=== PATIENT | female | born 2000 | race Caucasian/White ===

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

== ENCOUNTER 2025-03-30 05:48 | Emergency (ER) | payer BC ==
[2025-03-30 06:12] VITALS: TEMP 97.5; O2SAT 100
[2025-03-30] MEDS ORDERED: XYLOCAINE 1% HCL 20 ML MDV ONE (06:15)
[2025-03-30] MEDS: XYLOCAINE 1% HCL 20 ML MDV IJ ONE (06:17)
--- NOTE | 2025-03-30 07:00 | ERPHSYRPT ---
- History of Present Illness Time Seen by Provider: 03/30/25 06:00 Source: patient Exam Limitations: no limitations Patient Subjective Stated Complaint: pt reports approx 0535 she was bitten by her dog. states she was scratching the dog's stomach when it suddenly turned and bit her face causing lacerations to her lip. Triage Nursing Assessment: pt is aox3, pt tearful upon exam, afebrile, resps easy and non labored, cap refill < 3 seconds, radial pulses strong and equal, pt skin pink warm dry. pt with two lacerations to her bottom lip. minimal bleeding that is controlled at this time. Physician History: 24-year-old female presents to emergency department for evaluation of a dog bite. Patient states she was bitten by her [place] dog. The dog is 2 years old and has had behavioral issues. Patient was bitten on her lower lip right side. No other injuries reported. Tetanus is up-to-date. Patient voices no other complaints or concerns at this time. Incident occurred just prior to arrival Patient is dog up-to-date with vaccinations Portions of this note were created with voice recognition technology. There may be grammatical, spelling, punctuation or sound alike errors Timing/Duration: today Severity: moderate Modifying Factors: Improves With: nothing Associated Symptoms: denies symptoms Allergies/Adverse Reactions: hydrocodone Allergy (Verified 03/30/25 06:12) tramadol Adverse Reaction (Verified 03/30/25 06:12) Home Medications: Norgestimate-Ethinyl Estradiol [Sprintec 28 Day Tablet] 1 ea DAILY 08/05/20 [History] Hx Tetanus, Diphtheria Vaccination/Date Given: Yes Hx Influenza Vaccination/Date Given: No Hx Pneumococcal Vaccination/Date Given: No Immunizations Up to Date: Yes Travel Risk - International Travel Have you traveled outside of the country in past 3 weeks: No - Emerging Infectious Disease Are you exhibiting symptoms associated with any current EIDs: No - Review of Systems Constitutional: No Symptoms, No Fever, No Chills Eyes: No Symptoms Ears, Nose, & Throat: No Symptoms Respiratory: No Symptoms, No Cough, No Dyspnea Cardiac: No Symptoms, No Chest Pain, No Edema, No Syncope Abdominal/Gastrointestinal: No Symptoms, No Abdominal Pain, No Nausea, No Vomiting, No Diarrhea Genitourinary Symptoms: No Symptoms, No Dysuria Musculoskeletal: No Symptoms, No Back Pain, No Neck Pain Skin: No Symptoms, No Rash Neurological: No Symptoms, No Dizziness, No Focal Weakness, No Sensory Changes Psychological: No Symptoms Endocrine: No Symptoms Hematologic/Lymphatic: No Symptoms Immunological/Allergic: No Symptoms All Other Systems: Reviewed and Negative - Past Medical History Pertinent Past Medical History: No - Past Surgical History Past Surgical History: Yes Musculoskeletal: Orthopedic Surgery Other Surgical History: right shoulder surgery - Female History Hx Last Menstrual Period: 03/24/25 Hx Now: No - Social History Smoking Status: Never smoker Exposure to second hand smoke: No Drug Use: none - Social Determinants of Health Will the patient participate in the screening: Yes Do you worry about a steady place to live?: No Do you have any problems with any of the following?: No known problems In the past 12 months,have you had to go without utilities?: No Transportation Issues: No Has anyone in your support network made you feel unsafe?: No Have you or anyone in your house had to go w/o enough food: No - Nursing Vital Signs Nursing Vital Signs: Initial Vital Signs Temperature 97.5 F 03/30/25 05:54 Pulse Rate 84 03/30/25 05:54 Respiratory Rate 18 03/30/25 05:54 Blood Pressure 138/93 03/30/25 05:54 O2 Sat by Pulse Oximetry 100 03/30/25 05:54 Pain Scale Pain Intensity 7 - Physical Exam General Appearance: no apparent distress, alert Eye Exam: PERRL/EOMI, eyes nml inspection Ears, Nose, Throat Exam: normal ENT inspection, moist mucous membranes Neck Exam: normal inspection, full range of motion Respiratory Exam: normal breath sounds, lungs clear, airway intact, No respiratory distress Gastrointestinal/Abdomen Exam: soft, normal bowel sounds, No tenderness, No mass Back Exam: normal inspection, normal range of motion, No CVA tenderness, No vertebral tenderness Extremity Exam: normal inspection, normal range of motion, pelvis stable Neurologic Exam: alert, oriented x 3, cooperative, normal mood/affect, sensation nml, No motor deficits Skin Exam: normal color, warm, dry, other (There is a 2 cm laceration on the mucosal aspect of patient's lower lip right side. There is a 1 cm laceration on the skin surface of her lower lip right side.), No rash Lymphatic Exam: No adenopathy SpO2 Interpretation: normal SpO2: 100 O2 Delivery: Room Air Procedures - Laceration/Wound Repair Lip Time of Procedure: 06:00 (Lower lip right side) Wound Length (cm): 3 Wound's Depth, Shape: superficial Wound Explored: clean Irrigated: Yes Hibiclens Prep: Yes Anesthesia: 1% Lidocaine Volume Anesthetic (ccs): 3 Wound Debrided: No debridement indicated Wound Repaired With: sutures Suture Size/Type: 6-0 (6-0 Vicryl on the mucosal side of the lip. 6-0 Ethilon on the skin surface of the lip) Number of Sutures: 9 Layer Closure?: No Sterile Dressing Applied?: No Splint Applied?: No Sling Applied?: No Progress: Patient tolerated procedure well. No intra or postprocedural complications. Patient neurovascular intact post procedure. 5 simple interrupted sutures placed on the mucosal surface using 6-0 Vicryl. 4 simple interrupted sutures on the skin surface using 6-0 Ethilon 03/30/25 07:18 - Course Nursing assessment & vital signs reviewed: Yes Ordered Tests: Medication Summary Discontinued Medications Generic Name Dose Route Start Last Admin Trade Name Julianq PRN Reason Stop Dose Admin Amoxicillin/Clavulanate Potassium 875 mg 03/30/25 06:58 03/30/25 07:04 Amox Tr/Potassium Clavulanate 875 Mg Tablet PO 03/30/25 06:59 875 mg STAT ONE Administration Amoxicillin/Clavulanate Potassium Confirm 03/30/25 07:03 Amox Tr/Potassium Clavulanate 875 Mg Tablet Administered 03/30/25 07:04 Dose 875 mg .ROUTE .STK-MED ONE Lidocaine HCl 5 ml 03/30/25 06:14 03/30/25 06:17 Lidocaine Hcl 1% 20 Ml Mdv 20 Ml Ml IJ 03/30/25 06:15 5 ml STAT ONE Administration Lidocaine HCl Confirm 03/30/25 06:15 Lidocaine Hcl 1% 20 Ml Mdv 20 Ml Ml Administered 03/30/25 06:16 Dose 5 ml .ROUTE .STK-MED ONE - Progress Progress: improved Progress Note: 24-year-old female bitten by her dog. Dog up-to-date with vaccinations. Patient has a laceration to the lower lip near the right corner of her mouth. There is a 1 cm laceration on the skin surface and a 2 cm laceration on the mucosal side. Laceration was repaired using simple interrupted suture. 5 simple interrupted suture 6-0 Vicryl on the mucosal surface side. 4 simple interrupted 6-0 Ethilon on the skin side. Patient tolerated procedure well. No intra or postprocedural complications. Tetanus up-to-date. Patient received an oral dose of Augmentin in our ED. A prescription for the same was forwarded to patient's pharmacy. The skin surface sutures are to be removed in 1 week. The mucosal side of the wound has absorbable Vicryl sutures. No need for removal. Patient agrees to follow-up with her primary care doctor within 48 hours for reevaluation. Patient voices no other complaints or concerns at this time. Portions of this note were created with voice recognition technology. There may be grammatical, spelling, punctuation or sound alike errors Complexity of problem addressed is moderate acute complicated. No critical care time. Complex of data reviewed and analyzed as none. No specialized testing ordered. Diagnosis made based on history and physical exam. Risk of complication and or risk of morbidity/mortality of patient management is moderate. A prescription for Augmentin forwarded to patient's pharmacy. Vital stable. Time spent to discharge patient is approximately 20 minutes. Plan of care established for shared decision making. No social determinants of health present to impede follow-up. Portions of this note were created with voice recognition technology. There may be grammatical, spelling, punctuation or sound alike errors 03/30/25 07:20 Counseled pt/family regarding: diagnosis, need for follow-up - Departure Departure Disposition: Home Clinical Impression: Dog bite, Lip laceration Condition: Stable Critical Care Time: No Referrals: DOCTOR,NO FAMILY [Primary Care Provider, UNKNOWN] - Follow up/PCP as directed JAIR BAKER DO [ACTIVE STAFF, FAMILY PRACTICE] - Follow up/PCP as directed Additional Instructions: Discharge/Care Plan JAVY EASLEY was seen on 03/30/25 in the Emergency Room. The patient was counseled regarding Diagnosis,Lab results, Imaging studies, need for follow up and when to return to the Emergency Room. Prescriptions given: Discharge Note I have spoken with the patient and/or caregivers. I have explained the patient's condition, diagnosis and treatment plan based on the information available to me at this time. I have answered the patient's and/or caregiver's questions and addressed any concerns. The patient and/or caregivers have as good understanding of the patient's diagnosis, condition and treatment plan as can be expected at this point. The vital signs have been stable. The patient's condition is stable and appropriate for discharge from the emergency department. The patient will pursue further outpatient evaluation with the primary care physician or other designated or consulting physician as outlined in the discharge instructions. The patient and/or caregivers are agreeable to this plan of care and follow-up instructions have been explained in detail. The patient and/or caregivers have received these instruction. The patient/and or caregivers are aware that any significant change in condition or worsening of symptoms should prompt an immediate return to this or the closest emergency department or call 911. Prescriptions: Amox Tr/Potass Clav. 875 mg [Augmentin 875-125 Tablet] 875 mg PO BID 7 Days #14 tablet
[2025-03-30] MEDS ORDERED: Augmentin 875-125 Tablet ONE (07:03)
[2025-03-30] MEDS: Augmentin 875-125 Tablet PO ONE (07:04)
[2025-03-30 07:24] VITALS: PULSE 71; RESP 16
[2025-03-30 07:25] VITALS: BP 122/80
== END 2025-03-30 07:25 | disposition home or self-care (01) ==
LOC: ED 05:48
DX: S01.551A Open bite of lip, initial encounter (principal); W54.0XXA Bitten by dog, initial encounter; Z79.899 Other long term (current) drug therapy
CPT/HCPCS: 12013; 99283; A9270-GY